=== PATIENT | male | born 1985 | race Two or more races ===

== ENCOUNTER 2021-01-09 18:54 | Emergency (ER) | payer SELFPAY ==
[~2021-01-09] VITALS: Ht 180.3 cm; Wt 113.0 kg
[2021-01-09] MEDS ORDERED: ONDANSETRON PF 4 MG/2 ML VIAL. IVP ONE (19:30)
[2021-01-09] MEDS ORDERED: MORPHINE SULFATE 4 MG/ML INJ. IV ONE (19:30)
--- NOTE | 2021-01-09 19:47 | ED.ADGEN ---
General Adult HPI: HPI: Patient is a 35 year old male coming in after a fall off a trailer about 1 hour prior to arrival. Patient states he was standing on a trailer about 4 feet off the ground when he fell off and fell directly onto the top of his head and fell onto his chest. Patient denies any loss of consciousness. States he has some lacerations had because he fell onto gravel. No nausea or vomiting afterwards. Unknown when his last tetanus was. Denies any pain or injury below his chest. Review of Systems: Review of Systems: All other systems within normal limits except for as noted in the HPI Current Medications: Current Medications Medications (Trade) Dose Ordered Sig/Markie Start Time Stop Time Status Last Admin Dose Admin Diphtheria/ Tetanus/Acell Pertussis (ADACEL TDap SYRINGE) 0.5 ml ONCE ONCE 01/09/21 21:30 01/09/21 21:31 DC 01/09/21 22:45 0.5 ML Info (CONTRAST GIVEN -- Rx MONITORING) 1 each PRN DAILY PRN 01/09/21 20:45 01/11/21 20:44 Iohexol (Omnipaque 300 Mg/ml) 75 ml 1X ONCE 01/09/21 21:00 01/09/21 21:01 DC 01/09/21 20:40 75 ML Morphine Sulfate (Morphine Sulfate) 4 mg 1X ONCE 01/09/21 19:30 01/09/21 20:30 DC 01/09/21 20:01 4 MG Ondansetron HCl (Zofran) 4 mg 1X ONCE 01/09/21 19:30 01/09/21 20:30 DC 01/09/21 20:01 4 MG Sodium Chloride 1,000 ml @ 1,000 mls/hr 1X ONCE 01/09/21 21:30 01/09/21 22:29 DC 01/09/21 22:26 1,000 MLS/HR Allergies: Allergies: Allergies Coded Allergies Type Severity Reaction Last Updated Verified No Known Drug Allergies 01/09/21 No Physical Exam: PE: Constitutional: Well developed, well nourished, no acute distress, non-toxic appearance. [] HENT: Normocephalic, atraumatic, bilateral external ears normal, nose normal. [] Eyes: PERRLA, conjunctiva normal, no discharge. [] Neck: No rigidity, supple, no stridor. Tenderness over left C-spine, no step- off or deformity [] Cardiovascular: Regular rate and rhythm, brisk cap refill [] Lungs & Thorax: Non labored symmetric respirations, no tachypnea or respiratory distress [] Abdomen: Soft, nondistended. Skin: Warm, dry, no erythema, no rash. Abrasions to top of right side of head [] Back: Unremarkable Extremities: No deformities, range of motion grossly intact, no lower extremity edema [] Neurologic: Alert and oriented X 3, no focal deficits noted. [] Psychologic: Affect normal, judgement normal, mood normal. [] Current Patient Data: Labs: Laboratory Tests Test 01/09/21 19:52 White Blood Count 12.7 x10^3/uL (4.0-11.0) H Red Blood Count 4.51 x10^6/uL (4.30-5.70) Hemoglobin 12.1 g/dL (13.0-17.5) L Hematocrit 37.4 % (39.0-53.0) L Mean Corpuscular Volume 83 fL (79-100) Mean Corpuscular Hemoglobin 27 pg (25-35) Mean Corpuscular Hemoglobin Concent 33 g/dL (31-37) Red Cell Distribution Width 14.5 % (11.5-14.5) Platelet Count 335 x10^3/uL (140-400) Neutrophils (%) (Auto) 59 % (31-73) Lymphocytes (%) (Auto) 33 % (24-48) Monocytes (%) (Auto) 7 % (0-9) Eosinophils (%) (Auto) 1 % (0-3) Basophils (%) (Auto) 1 % (0-3) Neutrophils # (Auto) 7.5 x10^3/uL (1.8-7.7) Lymphocytes # (Auto) 4.2 x10^3/uL (1.0-4.8) Monocytes # (Auto) 0.9 x10^3/uL (0.0-1.1) Eosinophils # (Auto) 0.1 x10^3/uL (0.0-0.7) Basophils # (Auto) 0.1 x10^3/uL (0.0-0.2) Sodium Level 138 mmol/L (136-145) Potassium Level 3.2 mmol/L (3.5-5.1) L Chloride Level 101 mmol/L (98-107) Carbon Dioxide Level 23 mmol/L (21-32) Anion Gap 14 (6-14) Blood Urea Nitrogen 23 mg/dL (8-26) Creatinine 1.1 mg/dL (0.7-1.3) Estimated GFR (Cockcroft-Gault) 76.6 BUN/Creatinine Ratio 21 (6-20) H Glucose Level 158 mg/dL (70-99) H Calcium Level 8.9 mg/dL (8.5-10.1) Total Bilirubin 0.3 mg/dL (0.2-1.0) Aspartate Amino Transferase (AST) 38 U/L (15-37) H Alanine Aminotransferase (ALT) 54 U/L (16-63) Alkaline Phosphatase 70 U/L (46-116) Troponin I Quantitative < 0.017 ng/mL (0.000-0.055) Total Protein 8.2 g/dL (6.4-8.2) Albumin 4.4 g/dL (3.4-5.0) Albumin/Globulin Ratio 1.2 (1.0-1.7) Laboratory Tests 01/09/21 19:52 Laboratory Tests 01/09/21 19:52 Vital Signs: Vital Signs Date Time Temp Pulse Resp B/P (MAP) Pulse Ox O2 Delivery O2 Flow Rate FiO2 01/09/21 20:01 20 Room Air 01/09/21 19:25 98.1 92 153/98 99 98.1 EKG: EKG: [] Heart Score: C/O Chest Pain: No Risk Factors: Risk Factors: DM, Current or recent (<one month) smoker, HTN, HLP, family history of CAD, obesity. Risk Scores: Score 0 - 3: 2.5% MACE over next 6 weeks - Discharge Home Score 4 - 6: 20.3% MACE over next 6 weeks - Admit for Clinical Observation Score 7 - 10: 72.7% MACE over next 6 weeks - Early Invasive Strategies Radiology/Procedures: Radiology/Procedures: [facility] [address] [place] [address] IMAGING REPORT Signed PATIENT: SVETLANA GARCIA ACCOUNT: [id number] : 1985 LOCATION: ER AGE: 35 SEX: M EXAM STATUS: REG ER ORD. PHYSICIAN: VARUN BONILLA MD REASON: fall, back and chest pain PROCEDURE: CT CHEST ABD PELVIS W/CONTRAST CT head without contrast: Reason for examination: Fell onto head with head, neck, chest and back pain. Helical images were obtained through the brain. No contrast was administered. Reconstruction was performed in coronal plane. Ventricular systems are symmetric and not dilated. No midline shift is seen. There is no evidence of intracranial hemorrhage, acute infarct, mass or edema. No abnormalities of seen at the orbits. Paranasal sinuses show a small fluid level in the right maxillary antrum. Remaining paranasal sinuses and the mastoid air cells are clear. No acute abnormality seen in the skull. There does appear to be some soft tissue density at the base of the skull posteriorly into the right of midline. This probably reflects hematoma. IMPRESSION: No acute intracranial abnormality evident. Soft tissue hematoma to the right of midline posteriorly at the base of the skull. Small amount of fluid in the right maxillary antrum. CT cervical spine without contrast: Helical images were obtained through the cervical spine from skull base through the thoracic apices with no contrast administered. Reconstruction was performed in sagittal and coronal planes. There is displacement of the C7 vertebral body anterior to the T1 vertebral body with bilateral pedicle fractures at the C7 vertebral body. Remaining vertebral bodies are normally aligned without fracture or subluxation. C1 ring is intact. The odontoid process is intact and normally centered between the lateral masses of C1. The intervertebral discs are maintained in the cervical spine. Prevertebral soft tissues are thickened. There is contour deformity of the spinal canal at the C7-T1 level. IMPRESSION: C7 displaced anterior to the T1 vertebral body with bilateral pedicle fractures at the C7 level. Contour deformity of the spinal canal at the C7-T1 level. CT chest, abdomen pelvis with contrast: Helical images were obtained through the chest, abdomen and pelvis with intravenous administration of 75 cc Omnipaque 300. Reconstruction was performed in sagittal and coronal planes. No abnormality seen at the thyroid gland. The trachea and mainstem bronchi show no intraluminal lesions. No abnormality seen at the esophagus. The thoracic aorta shows no aneurysmal dilatation or dissection. The heart size is upper normal with no pericardial effusion. The lung stevenson show dependent atelectasis. Calcified granulomas seen in the right upper lobe. No gross infiltrates or pleural effusions are seen. No pneumothorax is present. No acute bony abnormalities are seen at the ribs, sternum, clavicles or scapula. No abnormality seen at the liver, spleen, adrenal glands, pancreas or gallbladder. The abdominal aorta and inferior vena cava show no acute abnormalities. The colon shows no diverticulosis, diverticulitis or colitis. No abnormality seen at the appendix. The small intestinal tract shows no abnormal dilatation, wall thickening nor obstruction. There is large amount of gastric content but no gastric obstruction is seen and no abnormality seen at the d uodenum. The kidneys show no renal masses, renal calculi, hydronephrosis or evidence of obstructive uropathy. No abnormality seen at the bladder, prostate gland or seminal vesicles. No free fluid or free air seen in the abdomen or pelvis. Again noted is complete subluxation of the C7 vertebral body on the T1 vertebral body with bilateral pedicle fractures present. There is a probable mild compre ssion deformity involving the superior endplate of the T1 vertebral body. Remaining vertebral bodies of the thoracic spine are normally aligned. No other site of fracture or subluxation is seen. The intervertebral discs spaces of the thoracic spine appear to be maintained but there is vacuum phenomena present at the T10-11 disc level. The vertebral bodies of the lumbar spine show no acute fracture or subluxation. There is some calcification of the posterior longitudinal ligament at the L3-4 and L4-5 levels. The intervertebral discs however fairly well-maintained. No spinal stenosis is evident. IMPRESSION: Complete subluxation of C7 on T1 with bilateral pedicle fractures of the C7 vertebral body and some mild compression deformity at the superior endplate of the T1 vertebral body. No other acute abnormality seen in the chest, abdomen or pelvis. CT thoracic spine without contrast: Helical images were obtained through the thoracic spine with no contrast administered. Reconstruction was performed in sagittal and coronal planes. Again noted is the complete subluxation of C7 on T1 with some compression deformity suggested at the superior endplate of the T1 vertebral body. There are bilateral pedicle fractures at the C7 vertebral body. There is deformity of the contour of the spinal canal with moderate stenosis. The remaining thoracic vertebral bodies are normally aligned anteriorly and posteriorly with no additional sites of fracture or subluxation seen. There is some vacuum phenomenon at the T10-11 disc level. Remaining disc spaces are maintained. Posterior elements are intact. IMPRESSION: Complete subluxation of C7 on T1 with bilateral pedicle fractures at the C7 isiah tebral body and some mild compression deformity involving the superior endplate of the T1 vertebral body. No additional fractures seen in the thoracic spine. CT lumbar spine without contrast: Helical images were obtained through the lumbar spine with no contrast administered. Reconstruction was performed in sagittal and coronal planes. The vertebral bodies of the lumbar spine show no acute fracture or subluxation is seen in the lumbar vertebral bodies. There is a lucency across the pars inte rarticularis on the left at the L4 level and a nondisplaced fracture is suspected. No other fractures are seen at the posterior elements. The intervertebral discs appear to be maintained. There does appear to be some calcification in the posterior longitudinal ligament at the L3-4 and L4-5 disc levels. There is some mild stenosis present at the L4-5 disc level. No other sites of significant spinal stenosis are evident. No acute abnormality seen at the sacrum or sacroiliac joints. IMPRESSION: Lucency across the left pars interarticularis of L4 consistent with a nondisplaced fracture. No other acute abnormality seen in the lumbar spine. Exposure: One or more of the following individualized dose reduction techniques were utilized for this examination: 1. Automated exposure control 2. Ad justment of the mA and/or kV according to patient size 3. Use of iterative reconstruction technique. FOR INTERNAL CODING PURPOSES Critical result: Findings discussed with Dr. Bonilla at 01/09/2021 9:00 PM. RESULT CODE: (C) Electronically signed by: Rita Carvajal MD (01/09/2021 9:28 PM) [facility] DI[facility]ATED and SIGNED BY: RITA CARVAJAL MD DATE: 01/09/21 [id number] [] Course & Med Decision Making: Course & Med Decision Making Discussed with neurosurgeon Dr. Rodriguez, feels that patient might also need cardiothoracic surgery which is not available this hospital needs to be tr ansferred for higher level care. Contacted [facility] who will accept the patient, Dr. Rivas is excepting physician Teresa Disclaimer: Teresa Disclaimer: This electronic medical record was generated, in whole or in part, using a voice recognition dictation system. Departure Departure Impression: Primary Impression: Fall Additional Impression: Closed subluxation of cervical spine Disposition: 02 SHORT TERM HOSPITAL Condition: CRITICAL Referrals: NO PCP (PCP) Problem Qualifiers VARUN BONILLA MD Jan 09, 2021 19:46
[2021-01-09 20:04] LABS: BASO # 0.1 x10^3/uL (0.0-0.2); BASO % 1 % (0-3); EOS # 0.1 x10^3/uL (0.0-0.7); EOS % 1 % (0-3); HEMATOCRIT 37.4 % (39.0-53.0); HEMOGLOBIN 12.1 g/dL (13.0-17.5); LYMPH # 4.2 x10^3/uL (1.0-4.8); LYMPH % 33 % (24-48); MEAN CORPUSCULAR HEMOGLOBIN 27 pg (25-35); MEAN CORPUSCULAR HGB CONC 33 g/dL (31-37); MEAN CORPUSCULAR VOLUME 83 fL (79-100); MONO # 0.9 x10^3/uL (0.0-1.1); MONO % 7 % (0-9); NEUT # 7.5 x10^3/uL (1.8-7.7); NEUT % 59 % (31-73); PLATELET COUNT 335 x10^3/uL (140-400); RED BLOOD COUNT 4.51 x10^6/uL (4.30-5.70); RED CELL DISTRIBUTION WIDTH 14.5 % (11.5-14.5); WHITE BLOOD COUNT 12.7 x10^3/uL (4.0-11.0)
[2021-01-09 20:14] LABS: CALCIUM 8.9 mg/dL (8.5-10.1); CREATININE 1.1 mg/dL (0.7-1.3); GFR 76.6; POTASSIUM 3.2 mmol/L (3.5-5.1)
[2021-01-09 20:20] LABS: ALBUMIN 4.4 g/dL (3.4-5.0); ALBUMIN/GLOBULIN RATIO 1.2 (1.0-1.7); TOTAL BILIRUBIN 0.3 mg/dL (0.2-1.0); TOTAL PROTEIN 8.2 g/dL (6.4-8.2)
[2021-01-09] MEDS ORDERED: CONTRAST GIVEN. MC PRN (20:45)
[2021-01-09] MEDS ORDERED: IOHEXOL 300 MG/ML 100ML VIAL. IV ONE (21:00)
--- NOTE | 2021-01-09 21:06 | RAD ---
Exam: Right elbow 3 views INDICATION: Fall TECHNIQUE: Frontal, lateral and oblique views of the right elbow Comparisons: None FINDINGS: Bone mineralization is normal. No acute or healed fractures. Soft tissues are unremarkable. Joint spa jason are well-maintained. IMPRESSION: No acute osseous abnormality of the right elbow Electronically signed by: Freddie Farmer MD (01/09/2021 9:04 PM) NOEL
[2021-01-09] MEDS ORDERED: DIPH,PERTUSS(ACELL),TET VAC/PF 0.5 ML SYRINGE. VAX IM ONE (21:30)
[2021-01-09] MEDS ORDERED: IV NORMAL SALINE 1000ML BAG 1,000 ML IV ONE (21:30)
--- NOTE | 2021-01-09 21:30 | RAD ---
CT head without contrast: Reason for examination: Fell onto head with head, neck, chest and back pain. Helical images were obtained through the brain. No contrast was administered. Reconstruction was perf ormed in coronal plane. Ventricular systems are symmetric and not dilated. No midline shift is seen. There is no evidence of intracranial hemorrhage, acute infarct, mass or edema. No abnormalities of seen at the orbits. Parana maria a sinuses show a small fluid level in the right maxillary antrum. Remaining paranasal sinuses and t he mastoid air cells are clear. No acute abnormality seen in the skull. There does appear to be some soft tissue density at the base of the skull posteriorly into the right of midline. This probably ref lects hematoma. IMPRESSION: No acute intracranial abnormality evident. Soft tissue hematoma to the right of midline posteriorly at the base of the skull. Small amount of fluid in the right maxillary antrum. CT cervical spine without contrast: Helical images were obtained through the cervical spine from skull base through the thoracic apices w ith no contrast administered. Reconstruction was performed in sagittal and coronal planes. There is displacement of the C7 vertebral body anterior to the T1 vertebral body with bilateral pedic le fractures at the C7 vertebral body. Remaining vertebral bodies are normally aligned without fractu re or subluxation. C1 ring is intact. The odontoid process is intact and normally centered between th e lateral masses of C1. The intervertebral discs are maintained in the cervical spine. Prevertebral s oft tissues are thickened. There is contour deformity of the spinal canal at the C7-T1 level. IMPRESSION: C7 displaced anterior to the T1 vertebral body with bilateral pedicle fractures at the C7 level. Contour deformity of the spinal canal at the C7-T1 level. CT chest, abdomen pelvis with contrast: Helical images were obtained through the chest, abdomen and pelvis with intravenous administration of 75 cc Omnipaque 300. Reconstruction was performed in sagittal and coronal planes. No abnormality seen at the thyroid gland. The trachea and mainstem bronchi show no intraluminal lesio ns. No abnormality seen at the esophagus. The thoracic aorta shows no aneurysmal dilatation or dissec tion. The heart size is upper normal with no pericardial effusion. The lung stevenson show dependent ate lectasis. Calcified granulomas seen in the right upper lobe. No gross infiltrates or pleural effusion s are seen. No pneumothorax is present. No acute bony abnormalities are seen at the ribs, sternum, cl avicles or scapula. No abnormality seen at the liver, spleen, adrenal glands, pancreas or gallbladder. The abdominal aort a and inferior vena cava show no acute abnormalities. The colon shows no diverticulosis, diverticulit is or colitis. No abnormality seen at the appendix. The small intestinal tract shows no abnormal dila tation, wall thickening nor obstruction. There is large amount of gastric content but no gastric obst ruction is seen and no abnormality seen at the duodenum. The kidneys show no renal masses, renal calc jarrell, hydronephrosis or evidence of obstructive uropathy. No abnormality seen at the bladder, prostate gland or seminal vesicles. No free fluid or free air see n in the abdomen or pelvis. Again noted is complete subluxation of the C7 vertebral body on the T1 vertebral body with bilateral pedicle fractures present. There is a probable mild compression deformity involving the superior endp late of the T1 vertebral body. Remaining vertebral bodies of the thoracic spine are normally aligned. No other site of fracture or subluxation is seen. The intervertebral discs spaces of the thoracic sp ine appear to be maintained but there is vacuum phenomena present at the T10-11 disc level. The vertebral bodies of the lumbar spine show no acute fracture or subluxation. There is some calcifi cation of the posterior longitudinal ligament at the L3-4 and L4-5 levels. The intervertebral discs h owever fairly well-maintained. No spinal stenosis is evident. IMPRESSION: Complete subluxation of C7 on T1 with bilateral pedicle fractures of the C7 vertebral body and some m ild compression deformity at the superior endplate of the T1 vertebral body. No other acute abnormality seen in the chest, abdomen or pelvis. CT thoracic spine without contrast: Helical images were obtained through the thoracic spine with no contrast administered. Reconstruction was performed in sagittal and coronal planes. Again noted is the complete subluxation of C7 on T1 with some compression deformity suggested at the superior endplate of the T1 vertebral body. There are bilateral pedicle fractures at the C7 vertebral body. There is deformity of the contour of the spinal canal with moderate stenosis. The remaining th oracic vertebral bodies are normally aligned anteriorly and posteriorly with no additional sites of f racture or subluxation seen. There is some vacuum phenomenon at the T10-11 disc level. Remaining disc spaces are maintained. Posterior elements are intact. IMPRESSION: Complete subluxation of C7 on T1 with bilateral pedicle fractures at the C7 vertebral body and some m ild compression deformity involving the superior endplate of the T1 vertebral body. No additional fractures seen in the thoracic spine. CT lumbar spine without contrast: Helical images were obtained through the lumbar spine with no contrast administered. Reconstruction w as performed in sagittal and coronal planes. The vertebral bodies of the lumbar spine show no acute fracture or subluxation is seen in the lumbar vertebral bodies. There is a lucency across the pars interarticularis on the left at the L4 level and a nondisplaced fracture is suspected. No other fractures are seen at the posterior elements. The int ervertebral discs appear to be maintained. There does appear to be some calcification in the posterio r longitudinal ligament at the L3-4 and L4-5 disc levels. There is some mild stenosis present at the L4-5 disc level. No other sites of significant spinal stenosis are evident. No acute abnormality seen at the sacrum or sacroiliac joints. IMPRESSION: Lucency across the left pars interarticularis of L4 consistent with a nondisplaced fracture. No other acute abnormality seen in the lumbar spine. Exposure: One or more of the following individualized dose reduction techniques were utilized for thi s examination: 1. Automated exposure control 2. Adjustment of the mA and/or kV according to patient size 3. Use of iterative reconstruction technique. FOR INTERNAL CODING PURPOSES Critical result: Findings discussed with Dr. Rogel at 01/09/2021 9:00 PM. RESULT CODE: (C) Electronically signed by: Ashley Lorenzo MD (01/09/2021 9:28 PM) DONNA
--- NOTE | 2021-01-09 21:31 | RAD ---
CT head without contrast: Reason for examination: Fell onto head with head, neck, chest and back pain. Helical images were obtained through the brain. No contrast was administered. Reconstruction was perf ormed in coronal plane. Ventricular systems are symmetric and not dilated. No midline shift is seen. There is no evidence of intracranial hemorrhage, acute infarct, mass or edema. No abnormalities of seen at the orbits. [place] a sinuses show a small fluid level in the right maxillary antrum. Remaining paranasal sinuses and t he mastoid air cells are clear. No acute abnormality seen in the skull. There does appear to be some soft tissue density at the base of the skull posteriorly into the right of midline. This probably ref lects hematoma. IMPRESSION: No acute intracranial abnormality evident. Soft tissue hematoma to the right of midline posteriorly at the base of the skull. Small amount of fluid in the right maxillary antrum. CT cervical spine without contrast: Helical images were obtained through the cervical spine from skull base through the thoracic apices w ith no contrast administered. Reconstruction was performed in sagittal and coronal planes. There is displacement of the C7 vertebral body anterior to the T1 vertebral body with bilateral pedic le fractures at the C7 vertebral body. Remaining vertebral bodies are normally aligned without fractu re or subluxation. C1 ring is intact. The odontoid process is intact and normally centered between th e lateral masses of C1. The intervertebral discs are maintained in the cervical spine. Prevertebral s oft tissues are thickened. There is contour deformity of the spinal canal at the C7-T1 level. IMPRESSION: C7 displaced anterior to the T1 vertebral body with bilateral pedicle fractures at the C7 level. Contour deformity of the spinal canal at the C7-T1 level. CT chest, abdomen pelvis with contrast: Helical images were obtained through the chest, abdomen and pelvis with intravenous administration of 75 cc Omnipaque 300. Reconstruction was performed in sagittal and coronal planes. No abnormality seen at the thyroid gland. The trachea and mainstem bronchi show no intraluminal lesio ns. No abnormality seen at the esophagus. The thoracic aorta shows no aneurysmal dilatation or dissec tion. The heart size is upper normal with no pericardial effusion. The lung stevenson show dependent ate lectasis. Calcified granulomas seen in the right upper lobe. No gross infiltrates or pleural effusion s are seen. No pneumothorax is present. No acute bony abnormalities are seen at the ribs, sternum, cl avicles or scapula. No abnormality seen at the liver, spleen, adrenal glands, pancreas or gallbladder. The abdominal aort a and inferior vena cava show no acute abnormalities. The colon shows no diverticulosis, diverticulit is or colitis. No abnormality seen at the appendix. The small intestinal tract shows no abnormal dila tation, wall thickening nor obstruction. There is large amount of gastric content but no gastric obst ruction is seen and no abnormality seen at the duodenum. The kidneys show no renal masses, renal calc jarrell, hydronephrosis or evidence of obstructive uropathy. No abnormality seen at the bladder, prostate gland or seminal vesicles. No free fluid or free air see n in the abdomen or pelvis. Again noted is complete subluxation of the C7 vertebral body on the T1 vertebral body with bilateral pedicle fractures present. There is a probable mild compression deformity involving the superior endp late of the T1 vertebral body. Remaining vertebral bodies of the thoracic spine are normally aligned. No other site of fracture or subluxation is seen. The intervertebral discs spaces of the thoracic sp ine appear to be maintained but there is vacuum phenomena present at the T10-11 disc level. The vertebral bodies of the lumbar spine show no acute fracture or subluxation. There is some calcifi cation of the posterior longitudinal ligament at the L3-4 and L4-5 levels. The intervertebral discs h owever fairly well-maintained. No spinal stenosis is evident. IMPRESSION: Complete subluxation of C7 on T1 with bilateral pedicle fractures of the C7 vertebral body and some m ild compression deformity at the superior endplate of the T1 vertebral body. No other acute abnormality seen in the chest, abdomen or pelvis. CT thoracic spine without contrast: Helical images were obtained through the thoracic spine with no contrast administered. Reconstruction was performed in sagittal and coronal planes. Again noted is the complete subluxation of C7 on T1 with some compression deformity suggested at the superior endplate of the T1 vertebral body. There are bilateral pedicle fractures at the C7 vertebral body. There is deformity of the contour of the spinal canal with moderate stenosis. The remaining th oracic vertebral bodies are normally aligned anteriorly and posteriorly with no additional sites of f racture or subluxation seen. There is some vacuum phenomenon at the T8 T10-11 disc level. Remaining d isc spaces are maintained. Posterior elements are intact. IMPRESSION: Complete subluxation of C7 on T1 with bilateral pedicle fractures at the C7 vertebral body and some m ild compression deformity involving superior endplate of the T1 vertebral body. No additional fractures seen in the thoracic spine. CT lumbar spine without contrast: Helical images were obtained through the lumbar spine with no contrast administered. Reconstruction w as performed in sagittal and coronal planes. The vertebral bodies of the lumbar spine no acute fracture or subluxation is seen in the lumbar verte bral bodies. There is a lucency across the pars interarticularis on the left at the L4 level and a no ndisplaced fracture is suspected. No other fractures are seen at the posterior elements. The interver tebral discs appear to be maintained. There does appear to be some calcification in the posterior beth gitudinal ligament at the L3-4 and L4-5 disc levels. There is some mild stenosis present at the L4-5 disc level. No other sites of significant spinal stenosis are evident. No acute abnormality seen at the sacrum or sacroiliac joints. IMPRESSION: Lucency across the left pars interarticularis of L4 consistent with a nondisplaced fracture. No other acute abnormality seen in the lumbar spine. Exposure: One or more of the following individualized dose reduction techniques were utilized for thi s examination: 1. Automated exposure control 2. Adjustment of the mA and/or kV according to patient size 3. Use of iterative reconstruction technique. FOR INTERNAL CODING PURPOSES Critical result: Findings discussed with Dr. Rogel at 01/09/2021 9:00 PM. RESULT CODE: (C) Electronically signed by: Ashley Lorenzo MD (01/09/2021 9:29 PM) DONNA
[2021-01-09 22:59] LABS: BILIRUBIN,URINE NEGATIVE (NEG); CLARITY,URINE CLEAR; COLOR,URINE YELLOW; NITRITE,URINE NEGATIVE (NEG); PH,URINE 6.5 (<5.0-8.0); PROTEIN,URINE NEGATIVE (NEG-TRACE); UROBILINOGEN,URINE 0.2 mg/dL (0.2 mg/dL)
[2021-01-09 23:08] LABS: BACTERIA,URINE 0 /HPF (0-FEW); RBC,URINE OCC /HPF (0-2); WBC,URINE 0 /HPF (0-4)
[2021-01-10] VITALS: BP 122/68
== END 2021-01-10 00:33 | disposition short-term general hospital (02) ==
LOC: ER 18:54
DX: S13.180A Subluxation of C7/T1 cervical vertebrae, initial encounter (principal); R51.9 Headache, unspecified; W18.39XA Other fall on same level, initial encounter; Y93.89 Activity, other specified; Y92.89 Other specified places as the place of occurrence of the external cause; Y99.8 Other external cause status
CPT/HCPCS: 36415; 70450; 71260; 72125; 73070; 74177; 80053; 81001; 84484; 85025; 90471; 90715; 96361; 96374; 96375; 99285; J2270; J2405; J7030; Q9967